=== PATIENT | male | born 1950 | race Caucasian/White ===

== ENCOUNTER 2019-04-21 10:14 | Outpatient (CLI) | payer MEDICARE, OTHER ==
--- NOTE | 2019-04-21 12:12 | ULT ---
RENAL ULTRASOUND: HISTORY: Chronic renal disease. TECHNIQUE: Real-time imaging of the right and left kidneys was performed. FINDINGS: The right kidney measures 10.5 and the left kidney 11.7 cm in size. No signs of cysts, mass or obstru ction. The bladder region appears unremarkable. The bladder was never completely distended. IMPRESSION: Unremarkable renal ultrasound. POS: [facility]
== END 2019-04-21 10:15 | disposition home or self-care (01) ==
LOC: MADULT 10:14
PROVIDERS: ATTEND Internal Medicine Nephrology
DX: N18.3 Chronic kidney disease, stage 3 (moderate) (principal)
CPT/HCPCS: 76770